=== PATIENT | female | born 1985 | race Caucasian/White ===

== ENCOUNTER 2017-06-12 06:57 | Inpatient (IN) | payer BC ==
[2017-06-12] MEDS ORDERED: Nalbuphine 20 MG/1 ML Amp IVPUSH PRN (08:46)
[2017-06-12] MEDS ORDERED: Aluminum Hydroxide/Magnesium Hydroxide/Simethicone Susp 30 ML Cup PO PRN (08:46)
[2017-06-12] MEDS ORDERED: Sodium Chloride 0.9% 10 ML Syringe FLUSH PRN (08:46)
[2017-06-12] MEDS ORDERED: Ondansetron 4 MG/2 ML SDV IVPUSH PRN ×2 (08:46→20:24)
--- NOTE | 2017-06-12 08:53 | PCM.PREANE ---
Preanesthetic Assessment - Procedure Proposed Procedure: continuous labor epidural - Anesthesia/Transfusion/Family Hx Anesthesia History: Prior Anesthesia Without Reaction Family History of Anesthesia Reaction: No Transfusion History: No Prior Transfusion(s) - Review of Systems General: No Symptoms Pulmonary: No Symptoms Cardiovascular: No Symptoms Gastrointestinal: No Symptoms Neurological: No Symptoms Other: Reports: None - Physical Assessment Pulse: 103 Respiratory Rate: 20 Blood Pressure: 125/73 Temperature: 98.1 F Height: 5 ft 2 in Weight: 87.317 kg ASA Class: 2 Mental Status: Alert & Oriented x3 Airway Class: Mallampati = 2 Dentition: Reports: Normal Dentition Thyro-Mental Finger Breadths: 3 Mouth Opening Finger Breadths: 3 ROM/Head Extension: Full Lungs: Clear to Auscultation, Normal Respiratory Effort Cardiovascular: Regular Rate, Regular Rhythm - Allergies Allergies/Adverse Reactions: Allergies Allergy/AdvReac Type Severity Reaction Status Date / Time No Known Allergies Allergy Verified 06/12/17 08:44 - Blood Blood Available: No - Acknowledgements Anesthesia Type Planned: Epidural Pt an Appropriate Candidate for the Planned Anesthesia: Yes Alternatives and Risks of Anesthesia Discussed w Pt/Guardian: Yes Pt/Guardian Understands and Agrees with Anesthesia Plan: Yes PreAnesthesia Questionnaire Cardiovascular History: Reports: None Respiratory History: Reports: None Gastrointestinal History: Reports: GERD (with ) 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: , Spontaneous , Other (See Below) : 5 (39 weeks) Para: 3 Other OB/BYN History: SAB with D&C 12/2013 Neurological History: Reports: None Psychiatric History: Reports: None Endocrine/Metabolic History: Reports: None Oncologic (Cancer) History: Reports: None - Past Surgical History HEENT Surgical History: Reports: Other (See Below) (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
[2017-06-12] MEDS ORDERED: ePHEDrine 50 MG/ML SDV IVPUSH PRN ×2 (08:58→22:52)
[2017-06-12] MEDS ORDERED: diphenhydrAMINE 50 MG/ML SDV IVPUSH PRN ×3 (08:58→22:52)
[2017-06-12] MEDS ORDERED: fentaNYL 100 MCG/2 ML SDV EPIDUR PRN (08:58)
[2017-06-12] MEDS ORDERED: Oxytocin/Lactated Ringers 10 UNIT/1,000 ML BAG IV SCH ×2 (09:00)
[2017-06-12] MEDS ORDERED: Bupivacaine/fentaNYL/NS 100 ML Bag EPIDUR SCH (09:00)
[2017-06-12] MEDS: Lactated Ringers 1,000 ML IV SCH ×4 (09:14→19:50)
[2017-06-12] MEDS ORDERED: FLU Vacc QS 2017-18 (6mos UP)/PF 60 MCG/0.5 ML Syringe IM ONE (09:15)
[2017-06-12] MEDS ORDERED: Metoclopramide 10 MG/2 ML SDV ONE (19:48)
[2017-06-12] MEDS ORDERED: Citric Acid/Sodium Citrate Solution 30 ML Cup ONE (19:49)
[2017-06-12] MEDS ORDERED: Bupivacaine 0.5% 30 ML SDV ONE (19:54)
[2017-06-12] MEDS ORDERED: Sodium Bicarbonate 8.4% 50 MEQ/50 ML Syringe ONE (19:54)
[2017-06-12] MEDS ORDERED: fentaNYL 100 MCG/2 ML SDV ONE (20:22)
[2017-06-12] MEDS ORDERED: fentaNYL 100 MCG/2 ML SDV IVPUSH PRN (20:24)
[2017-06-12] MEDS ORDERED: Oxytocin 10 Units/1 ML SDV ONE ×2 (20:27→20:41)
[2017-06-12] MEDS ORDERED: Lactated Ringers 1,000 ML ONE ×2 (20:27→20:39)
[2017-06-12] MEDS ORDERED: Morphine PF 10 MG/10 ML SDV ONE (20:34)
[2017-06-12] MEDS ORDERED: Lidocaine 2% with EPINEPHrine 1:200,000 20 ML SDV ONE (20:54)
[2017-06-12] MEDS ORDERED: ceFAZolin 1 GM Vial ONE ×2 (21:10)
[2017-06-12] MEDS ORDERED: ePHEDrine 50 MG/ML SDV ONE (21:10)
--- NOTE | 2017-06-12 21:11 | PCM.LDHP ---
L&D History of Present Illness - General Date of Service: 06/12/17 Admit Problem/Dx: Patient Status Order with Admit Dx/Problem 06/12/17 08:46 Patient Status [ADT] Routine Admission Diagnosis/Problem Admission Diagnosis/Problem Source of Information: Patient History Limitations: Reports: No Limitations - History of Present Illness Introduction:: 31 year old at [id number] here for induction of labor history of rapid labors and distance from the hospital. 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: , Spontaneous , Other (See Below) Other OB/BYN History: SAB with D&C 12/2013 Neurological History: Reports: None Psychiatric History: Reports: None Endocrine/Metabolic History: Reports: None Oncologic (Cancer) History: Reports: None - Past Surgical History HEENT Surgical History: Reports: Other (See Below) (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) Female Surgical History: Reports: D&C - History Comment History Comment: tylenol prn and vits Social & Family History - Family History Family Medical History: Noncontributory - Tobacco Use Smoking Status *Q: Former Smoker (quit couple years ago) Used Tobacco, but Quit: Yes Month Tobacco Last Used: 9 Tobacco Use Comment: used a vape Second Hand Smoke Exposure: No - Caffeine Use Caffeine Use: Reports: Coffee, Soda - Alcohol Use Days Per Week of Alcohol Use: 0 - Recreational Drug Use Recreational Drug Use: No H&P Review of Systems - Review of Systems: Review Of Systems: See Below General: Reports: No Symptoms HEENT: Reports: No Symptoms Pulmonary: Reports: No Symptoms Cardiovascular: Reports: No Symptoms Gastrointestinal: Reports: No Symptoms Genitourinary: Reports: No Symptoms Musculoskeletal: Reports: No Symptoms Skin: Reports: No Symptoms Psychiatric: Reports: No Symptoms Neurological: Reports: No Symptoms Hematologic/Lymphatic: Reports: No Symptoms Immunologic: Reports: No Symptoms L&D Exam - Exam Exam: See Below - Vital Signs Vital Signs: Last Vital Signs Temp 36.5 C 06/12/17 20:50 Pulse 74 06/12/17 19:00 Resp 13 06/12/17 21:02 BP 100/55 L 06/12/17 20:50 Pulse Ox 98 06/12/17 21:02 Weight: 87.317 kg - OB Specific Contraction Intensity: Mild to Moderate Movement: Active Heart Rate (FHR) Variability: Moderate (6-25 bmp) - Bsos Score Boss Score Cervix Position: Midposition Boss Score Consistency: Soft Boss Score Effacement: 31-50% Boss Score Dilation: 1-2 cm Boss Score Infant's Station: -3 Boss Score Total: 5 - Exam General: Alert, Oriented HEENT: PERRLA, Conjunctiva Clear, EACs Clear, EOMI, Hearing Intact, Mucosa Moist & [place], Nares Patent, Normal Nasal Septum, Posterior Pharynx Clear, TMs Clear Neck: Supple, Trachea Midline Lungs: Clear to Auscultation, Normal Respiratory Effort Cardiovascular: Regular Rate, Regular Rhythm GI/Abdominal Exam: Normal Bowel Sounds, Soft, Non-Tender, No Organomegaly, No Distention, No Abnormal Bruit, No Mass, Pelvis Stable Rectal Exam: Normal Exam, Normal Rectal Tone Genitourinary: Normal external exam, Normal bimanual exam, Normal speculum exam Back Exam: Normal Inspection, Full Range of Motion Extremities: Normal Inspection, Normal Range of Motion, Non-Tender, No Pedal Edema, Normal Capillary Refill Skin: Warm, Dry, Intact Neurological: Cranial Nerves Intact, Reflexes Equal Bilateral Psychiatric: Alert, Normal Affect, Normal Mood - Patient Data Lab Results Last 24 hrs: Laboratory Results - last 24 hr 06/12/17 06/12/17 Range/Units 09:45 20:15 WBC 7.57 (3.98-10.04) K/mm3 RBC 4.06 (3.98-5.22) M/mm3 Hgb 10.8 L (11.2-15.7) gm/L Hct 33.3 L (34.1-44.9) % MCV 82.0 (79.4-94.8) fl MCH 26.6 (25.6-32.2) pg MCHC 32.4 (32.2-35.5) g/dl RDW Std Deviation 39.8 (36.4-46.3) fL Plt Count 223 (182-369) K/mm3 MPV 10.6 (9.4-12.3) fl Neut % (Auto) 71.9 H (34.0-71.1) % Lymph % (Auto) 19.8 (19.3-51.7) % Kings % (Auto) 6.5 (4.7-12.5) % Eos % (Auto) 0.7 (0.7-5.8) Baso % (Auto) 0.4 (0.1-1.2) % Neut # (Auto) 5.45 (1.56-6.13) K/mm3 Lymph # (Auto) 1.50 (1.18-3.74) K/mm3 Kings # (Auto) 0.49 H (0.24-0.36) K/mm3 Eos # (Auto) 0.05 (0.04-0.36) K/mm3 Baso # (Auto) 0.03 (0.01-0.08) K/mm3 Cord ABG pH 7.25 (7.22-7.32) Cord ABG pCO2 63.3 H (42-58) Cord ABG pO2 18 (12-24) Cord ABG HCO3 26.8 H (24-26) Cord ABG Base Excess -1.8 (-5.5-0.1) Result Diagrams: 06/12/17 09:45 Problem List Initiated/Reviewed/Updated: Yes Orders Last 24hrs: Active Orders 24 hr Category Date Time Status Patient Status Manage Transfer [TRANSFER] Routine ADT 06/12/17 21:00 Ordered Patient Status [ADT] Routine ADT 06/12/17 08:46 Active Activity as Tolerated [RC] PFP Care 06/12/17 08:46 Active Communication Order [RC] ASDIRECTED Care 06/12/17 08:46 Active Communication Order [RC] ASDIRECTED Care 06/12/17 20:24 Active Communication Order [RC] ROUTINE Care 06/12/17 20:24 Active Cooling Warming Measures [RC] ASDIRECTED Care 06/12/17 20:24 Active Notify Provider [RC] ASDIRECTED Care 06/12/17 08:58 Active Notify Provider [RC] ASDIRECTED Care 06/12/17 20:24 Active Notify Provider [RC] PFP Care 06/12/17 08:46 Active Notify Provider [RC] PRN Care 06/12/17 08:46 Active Oxygen Therapy [RC] ASDIRECTED Care 06/12/17 20:24 Active Peripheral IV Care [RC] . DIRECTED Care 06/12/17 08:46 Active Pulse Oximetry [RC] ASDIRECTED Care 06/12/17 20:24 Active Vital Signs [RC] PER UNIT ROUTINE Care 06/12/17 08:46 Active Vital Signs [RC] Q15M Care 06/12/17 20:24 Active Vital Signs [RC] Q1H Care 06/12/17 20:24 Active Regular Diet [DIET] Diet 06/12/17 Breakfast Active Abdomen 1V Flat [CR] Routine Exams 06/12/17 20:25 Taken CBC W/O DIFF,HEMOGRAM [HEME] Stat Lab 06/12/17 20:58 Ordered Alum Hydrox/Mag Hydrox/Simeth [Mag-Al Plus] Med 06/12/17 08:46 Active 30 ml PO Q8H PRN Bupivacaine/fentaNYL/NS [fentaNYL/Bupivacaine/NS 2 MCG- Med 06/12/17 09:00 Active 0.125% 100 ML] 100 ml EPIDUR ASDIRECTED Lactated Ringers [Ringers, Lactated] 1,000 ml Med 06/12/17 09:00 Active IV ASDIRECTED Nalbuphine [Nubain] Med 06/12/17 08:46 Active 10 mg IVPUSH Q2H PRN Ondansetron [Zofran] Med 06/12/17 20:24 Active 4 mg IVPUSH ONETIME PRN Ondansetron [Zofran] Med 06/12/17 08:46 Active 4 mg IVPUSH Q4H PRN Oxytocin/Lactated Ringers [Pitocin in LR 10 Units/1,000 Med 06/12/17 09:00 Active ML] 10 unit in 1,000 ml IV .CONTINUOUS Oxytocin/Lactated Ringers [Pitocin in LR 10 Units/1,000 Med 06/12/17 09:00 Active ML] 10 unit in 1,000 ml IV TITRATE Pharmacy to Dose [Pharmacy to Dose - InFluenza Vaccine] Med 06/13/17 09:00 Once 1 each IM ONETIME ONE Sodium Chloride 0.9% [Saline Flush] Med 06/12/17 08:46 Active 10 ml FLUSH ASDIRECTED PRN diphenhydrAMINE [Benadryl] Med 06/12/17 08:58 Active 25 mg IVPUSH Q6H PRN diphenhydrAMINE [Benadryl] Med 06/12/17 20:24 Active 25 mg IVPUSH Q6H PRN ePHEDrine [ePHEDrine Sulfate] Med 06/12/17 08:58 Active 5 mg IVPUSH ASDIRECTED PRN fentaNYL [Sublimaze] Med 06/12/17 08:58 Active 100 mcg EPIDUR Q3H PRN fentaNYL [Sublimaze] Med 06/12/17 20:24 Active 50 mcg IVPUSH Q5M PRN Electronic Heart Tones Ext w TOCO [WOMSER] Oth 06/12/17 08:46 Ordered Routine Electronic Heart Tones Internal [WOMSER] Per Unit Ot 06/12/17 08:46 Ordered Routine Peripheral IV Insertion Adult [OM.PC] Routine Ot 06/12/17 08:46 Ordered Pulse Oximetry Continuous Monitoring [OM.PC] Routine Ot 06/12/17 20:24 Active Resuscitation Status Routine Resus Stat 06/12/17 08:46 Ordered Medication Orders Al Hydroxide/Mg Hydroxide (Mag-Al Plus) 30 ml PO Q8H PRN PRN Reason: Heartburn Diphenhydramine HCl (Benadryl) 25 mg IVPUSH Q6H PRN PRN Reason: pruritis Diphenhydramine HCl (Benadryl) 25 mg IVPUSH Q6H PRN PRN Reason: pruritis Ephedrine Sulfate (Ephedrine Sulfate) 5 mg IVPUSH ASDIRECTED PRN PRN Reason: Hypotension Fentanyl (Sublimaze) 100 mcg EPIDUR Q3H PRN PRN Reason: Pain Last Admin: 06/12/17 15:46 Dose: 100 mcg Fentanyl (Sublimaze) 50 mcg IVPUSH Q5M PRN PRN Reason: Pain Fentanyl/Bupivacaine HCl (Fentanyl/Bupivacaine/Ns 2 Mcg-0.125% 100 Ml) 100 ml EPIDUR ASDIRECTED ABDON Last Admin: 06/12/17 15:45 Dose: 100 ml Lactated Ringer's (Ringers, Lactated) 1,000 mls @ 100 mls/hr IV ASDIRECTED ABDON Last Admin: 06/12/17 16:19 Dose: 100 mls/hr Infusion: 06/12/17 16:19 Dose: 100 mls/hr Admin: 06/12/17 15:05 Dose: 100 mls/hr Infusion: 06/12/17 15:05 Dose: 100 mls/hr Admin: 06/12/17 09:14 Dose: 100 mls/hr Oxytocin/Lactated Ringer's (Pitocin In Lr 10 Units/1,000 Ml) 10 unit in 1,000 mls @ 12 mls/hr IV TITRATE ABDON; 2 MUNITS/MIN PRN Reason: Protocol Last Titration: 06/12/17 19:30 Dose: 10 munits/min, 60 mls/hr Titration: 06/12/17 14:12 Dose: 15 munits/min, 90 mls/hr Titration: 06/12/17 13:38 Dose: 13 munits/min, 78 mls/hr Titration: 06/12/17 12:23 Dose: 12 munits/min, 72 mls/hr Titration: 06/12/17 11:31 Dose: 10 munits/min, 60 mls/hr Titration: 06/12/17 10:51 Dose: 8 munits/min, 48 mls/hr Titration: 06/12/17 10:16 Dose: 6 munits/min, 36 mls/hr Titration: 06/12/17 09:44 Dose: 4 munits/min, 24 mls/hr Admin: 06/12/17 09:16 Dose: 2 munits/min, 12 mls/hr Oxytocin/Lactated Ringer's (Pitocin In Lr 10 Units/1,000 Ml) 10 unit in 1,000 mls @ 500 mls/hr IV .CONTINUOUS ABDON Influenza Virus Vaccine (Pharmacy To Dose - Influenza Vaccine) 1 each IM ONETIME ONE Stop: 06/13/17 09:01 Nalbuphine HCl (Nubain) 10 mg IVPUSH Q2H PRN PRN Reason: Pain (moderate 4-6) Last Admin: 06/12/17 13:10 Dose: 10 mg Ondansetron HCl (Zofran) 4 mg IVPUSH Q4H PRN PRN Reason: Nausea/Vomiting Ondansetron HCl (Zofran) 4 mg IVPUSH ONETIME PRN PRN Reason: Nausea/Vomiting Sodium Chloride (Saline Flush) 10 ml FLUSH ASDIRECTED PRN PRN Reason: Keep Vein Open Assessment/Plan Comment:: Term induction. Start pitocin. Anticipate unless otherwise indicated EFW 8#9oz
--- NOTE | 2017-06-12 21:16 | PCM.POSTAN ---
POST ANESTHESIA ASSESSMENT - MENTAL STATUS Mental Status: Alert, Oriented - VITAL SIGNS Pulse Rate: 80 SaO2: 98 Resp Rate: 13 Blood Pressure: 100/55 Temperature: 97.7 F - RESPIRATORY Respiratory Status: Respiratory Rate WNL, Airway Patent, O2 Saturation Stable, Supplemental Oxygen - CARDIOVASCULAR CV Status: Pulse Rate WNL, Blood Pressure Stable - GASTROINTESTINAL GI Status: No Symptoms - PAIN Pain Score: 0 - POST OP HYDRATION Hydration Status: Adequate & Stable
--- NOTE | 2017-06-12 21:17 | PCM.PNLD ---
Labor Progress Note - VS & Meds Vital Signs: Last Vital Signs Temp 36.7 C 06/12/17 21:05 Pulse 74 06/12/17 19:00 Resp 12 06/12/17 21:05 BP 95/55 L 06/12/17 21:05 Pulse Ox 99 06/12/17 21:05 Active Medications: Current Medications Al Hydroxide/Mg Hydroxide (Mag-Al Plus) 30 ml PO Q8H PRN PRN Reason: Heartburn Diphenhydramine HCl (Benadryl) 25 mg IVPUSH Q6H PRN PRN Reason: pruritis Diphenhydramine HCl (Benadryl) 25 mg IVPUSH Q6H PRN PRN Reason: pruritis Ephedrine Sulfate (Ephedrine Sulfate) 5 mg IVPUSH ASDIRECTED PRN PRN Reason: Hypotension Fentanyl (Sublimaze) 100 mcg EPIDUR Q3H PRN PRN Reason: Pain Last Admin: 06/12/17 15:46 Dose: 100 mcg Fentanyl (Sublimaze) 50 mcg IVPUSH Q5M PRN PRN Reason: Pain Fentanyl/Bupivacaine HCl (Fentanyl/Bupivacaine/Ns 2 Mcg-0.125% 100 Ml) 100 ml EPIDUR ASDIRECTED ABDON Last Admin: 06/12/17 15:45 Dose: 100 ml Lactated Ringer's (Ringers, Lactated) 1,000 mls @ 100 mls/hr IV ASDIRECTED ABDON Last Admin: 06/12/17 16:19 Dose: 100 mls/hr Oxytocin/Lactated Ringer's (Pitocin In Lr 10 Units/1,000 Ml) 10 unit in 1,000 mls @ 12 mls/hr IV TITRATE ABDON; 2 MUNITS/MIN PRN Reason: Protocol Last Titration: 06/12/17 19:30 Dose: 10 munits/min, 60 mls/hr Oxytocin/Lactated Ringer's (Pitocin In Lr 10 Units/1,000 Ml) 10 unit in 1,000 mls @ 500 mls/hr IV .CONTINUOUS [facility] Influenza Virus Vaccine (Pharmacy To Dose - Influenza Vaccine) 1 each IM ONETIME ONE Stop: 06/13/17 09:01 Nalbuphine HCl (Nubain) 10 mg IVPUSH Q2H PRN PRN Reason: Pain (moderate 4-6) Last Admin: 06/12/17 13:10 Dose: 10 mg Ondansetron HCl (Zofran) 4 mg IVPUSH Q4H PRN PRN Reason: Nausea/Vomiting Ondansetron HCl (Zofran) 4 mg IVPUSH ONETIME PRN PRN Reason: Nausea/Vomiting Sodium Chloride (Saline Flush) 10 ml FLUSH ASDIRECTED PRN PRN Reason: Keep Vein Open Discontinued Medications Bupivacaine HCl (Marcaine 0.5%) Confirm Administered Dose 30 ml .ROUTE .STK-MED ONE Stop: 06/12/17 19:55 Cefazolin Sodium (Ancef) Confirm Administered Dose 1 gm .ROUTE .STK-MED ONE Stop: 06/12/17 21:11 Cefazolin Sodium (Ancef) Confirm Administered Dose 1 gm .ROUTE .STK-MED ONE Stop: 06/12/17 21:11 Citric Acid/Sodium Citrate (Bicitra Solution) Confirm Administered Dose 30 ml .ROUTE .STK-MED ONE Stop: 06/12/17 19:50 Ephedrine Sulfate (Ephedrine Sulfate) Confirm Administered Dose 50 mg .ROUTE .STK-MED ONE Stop: 06/12/17 21:11 Fentanyl (Sublimaze) Confirm Administered Dose 100 mcg .ROUTE .STK-MED ONE Stop: 06/12/17 20:23 Lactated Ringer's (Ringers, Lactated) Confirm Administered Dose 1,000 mls @ as directed .ROUTE .STK-MED ONE Stop: 06/12/17 20:28 Lactated Ringer's (Ringers, Lactated) Confirm Administered Dose 1,000 mls @ as directed .ROUTE .STK-MED ONE Stop: 06/12/17 20:40 Influenza Virus Vaccine (Flulaval Quad [id number]) 60 mcg IM .ONCE ONE Stop: 06/12/17 09:16 Lidocaine/Epinephrine (Xylocaine-Mpf 2%-Epi 1:200,000) Confirm Administered Dose 20 ml .ROUTE .STK-MED ONE Stop: 06/12/17 20:55 Metoclopramide HCl (Reglan) Confirm Administered Dose 10 mg .ROUTE .STK-MED ONE Stop: 06/12/17 19:49 Morphine Sulfate (Duramorph Pf) Confirm Administered Dose 10 mg .ROUTE .STK-MED ONE Stop: 06/12/17 20:35 Oxytocin (Pitocin) Confirm Administered Dose 10 unit .ROUTE .STK-MED ONE Stop: 06/12/17 20:28 Oxytocin (Pitocin) Confirm Administered Dose 10 unit .ROUTE .STK-MED ONE Stop: 06/12/17 20:42 Sodium Bicarbonate (Sodium Bicarbonate 8.4%) Confirm Administered Dose 50 meq .ROUTE .STK-MED ONE Stop: 06/12/17 19:55 - Uterine Contractions Contraction Intensity: Mild to Moderate Uterine Resting Tone: Soft - Monitoring Heart Rate (FHR) Variability: Moderate (6-25 bmp) Accelerations: Present, 15x15 Strip Review: Category I - Vaginal Exam Dilation (cm): 3 Effacement (Percent): 75 Station: -3 Cervical Position: Midposition - Labor Progress (Free Text) Labor Progress: Good progress. 3 cm. Feeling more uncomfortable
--- NOTE | 2017-06-12 21:18 | PCM.PNLD ---
Labor Progress Note - VS & Meds Vital Signs: Last Vital Signs Temp 36.5 C 06/12/17 21:15 Pulse 80 06/12/17 21:15 Resp 13 06/12/17 21:15 BP 100/55 L 06/12/17 21:15 Pulse Ox 98 06/12/17 21:15 Active Medications: Current Medications Al Hydroxide/Mg Hydroxide (Mag-Al Plus) 30 ml PO Q8H PRN PRN Reason: Heartburn Diphenhydramine HCl (Benadryl) 25 mg IVPUSH Q6H PRN PRN Reason: pruritis Diphenhydramine HCl (Benadryl) 25 mg IVPUSH Q6H PRN PRN Reason: pruritis Ephedrine Sulfate (Ephedrine Sulfate) 5 mg IVPUSH ASDIRECTED PRN PRN Reason: Hypotension Fentanyl (Sublimaze) 100 mcg EPIDUR Q3H PRN PRN Reason: Pain Last Admin: 06/12/17 15:46 Dose: 100 mcg Fentanyl (Sublimaze) 50 mcg IVPUSH Q5M PRN PRN Reason: Pain Fentanyl/Bupivacaine HCl (Fentanyl/Bupivacaine/Ns 2 Mcg-0.125% 100 Ml) 100 ml EPIDUR ASDIRECTED ABDON Last Admin: 06/12/17 15:45 Dose: 100 ml Lactated Ringer's (Ringers, Lactated) 1,000 mls @ 100 mls/hr IV ASDIRECTED ABDON Last Admin: 06/12/17 16:19 Dose: 100 mls/hr Oxytocin/Lactated Ringer's (Pitocin In Lr 10 Units/1,000 Ml) 10 unit in 1,000 mls @ 12 mls/hr IV TITRATE ABDON; 2 MUNITS/MIN PRN Reason: Protocol Last Titration: 06/12/17 19:30 Dose: 10 munits/min, 60 mls/hr Oxytocin/Lactated Ringer's (Pitocin In Lr 10 Units/1,000 Ml) 10 unit in 1,000 mls @ 500 mls/hr IV .CONTINUOUS [facility] Influenza Virus Vaccine (Pharmacy To Dose - Influenza Vaccine) 1 each IM ONETIME ONE Stop: 06/13/17 09:01 Nalbuphine HCl (Nubain) 10 mg IVPUSH Q2H PRN PRN Reason: Pain (moderate 4-6) Last Admin: 06/12/17 13:10 Dose: 10 mg Ondansetron HCl (Zofran) 4 mg IVPUSH Q4H PRN PRN Reason: Nausea/Vomiting Ondansetron HCl (Zofran) 4 mg IVPUSH ONETIME PRN PRN Reason: Nausea/Vomiting Sodium Chloride (Saline Flush) 10 ml FLUSH ASDIRECTED PRN PRN Reason: Keep Vein Open Discontinued Medications Bupivacaine HCl (Marcaine 0.5%) Confirm Administered Dose 30 ml .ROUTE .STK-MED ONE Stop: 06/12/17 19:55 Cefazolin Sodium (Ancef) Confirm Administered Dose 1 gm .ROUTE .STK-MED ONE Stop: 06/12/17 21:11 Cefazolin Sodium (Ancef) Confirm Administered Dose 1 gm .ROUTE .STK-MED ONE Stop: 06/12/17 21:11 Citric Acid/Sodium Citrate (Bicitra Solution) Confirm Administered Dose 30 ml .ROUTE .STK-MED ONE Stop: 06/12/17 19:50 Ephedrine Sulfate (Ephedrine Sulfate) Confirm Administered Dose 50 mg .ROUTE .STK-MED ONE Stop: 06/12/17 21:11 Fentanyl (Sublimaze) Confirm Administered Dose 100 mcg .ROUTE .STK-MED ONE Stop: 06/12/17 20:23 Lactated Ringer's (Ringers, Lactated) Confirm Administered Dose 1,000 mls @ as directed .ROUTE .STK-MED ONE Stop: 06/12/17 20:28 Lactated Ringer's (Ringers, Lactated) Confirm Administered Dose 1,000 mls @ as directed .ROUTE .STK-MED ONE Stop: 06/12/17 20:40 Influenza Virus Vaccine (Flulaval Quad [id number]) 60 mcg IM .ONCE ONE Stop: 06/12/17 09:16 Lidocaine/Epinephrine (Xylocaine-Mpf 2%-Epi 1:200,000) Confirm Administered Dose 20 ml .ROUTE .STK-MED ONE Stop: 06/12/17 20:55 Metoclopramide HCl (Reglan) Confirm Administered Dose 10 mg .ROUTE .STK-MED ONE Stop: 06/12/17 19:49 Morphine Sulfate (Duramorph Pf) Confirm Administered Dose 10 mg .ROUTE .STK-MED ONE Stop: 06/12/17 20:35 Oxytocin (Pitocin) Confirm Administered Dose 10 unit .ROUTE .STK-MED ONE Stop: 06/12/17 20:28 Oxytocin (Pitocin) Confirm Administered Dose 10 unit .ROUTE .STK-MED ONE Stop: 06/12/17 20:42 Sodium Bicarbonate (Sodium Bicarbonate 8.4%) Confirm Administered Dose 50 meq .ROUTE .STK-MED ONE Stop: 06/12/17 19:55 - Uterine Contractions Uterine Monitoring Mode: External [place] Contraction Intensity: Mild to Moderate Uterine Resting Tone: Soft - Monitoring Heart Rate (FHR) Baseline: 140 Heart Rate (FHR) Variability: Moderate (6-25 bmp) Accelerations: Present, 15x15 Strip Review: Category I - Vaginal Exam Dilation (cm): 7 Effacement (Percent): 90 Station: -3 Cervical Position: Midposition - Labor Progress (Free Text) Labor Progress: Continued leaking of fluid. Feeling more pressure.
--- NOTE | 2017-06-12 21:22 | CR ---
Abdomen: Supine view of the abdomen was obtained. Soft tissue density is seen presumably due to enlarged uterus. Slight increased gas within small bowel is seen most likely representing minimal ileus. Linear density is coiled overlying the upper lumbar spine. Please correlate as to etiology. No opaque foreign body is otherwise seen. No additional abnormality is seen. Impression: 1. Linear density overlying the spine. Please correlate as to etiology. No other opaque foreign body is seen. Other incidental findings as noted above. Diagnostic code #3
--- NOTE | 2017-06-12 21:23 | PCM.SN ---
- Free Text/Narrative Note: Called to bedside by patient's RN after early deceleration and cervical exam followed by bright red vaginal bleeding. I arrived at bedside at 7:39 after phone call at 7:27. Brisk red vaginal bleeding noted. FHT 135 with good variability. Given significant bleeding and cervical exam of 7 cm plan to proceed with primary section. RBA discussed patient understands and wishes to proceed. Diagnosis abruption.
--- NOTE | 2017-06-12 21:34 | PCM.OPNOTE ---
- General Post-Op/Procedure Note Date of Surgery/Procedure: 06/12/17 Operative Procedure(s): primary section Findings: Significant clot upon entry to uterus. Two saturated chux pads under patient upon transfer. Vigorous male, weight 9#9oz, APGARS 9/9 at 2012. Pre Op Diagnosis: Abruption, IUP at 39+ Post-Op Diagnosis: Same Anesthesia Technique: Epidural Primary Surgeon: Mariana Garcia Anesthesia Provider: Ari Chan Medical Record Retrieval Specialist: Meghna Vieyra Reason Medical Record Retrieval Specialist Was Necessary: Standard of care, stat for abruption, retraction and expediting procedure for patient and safety. Pathology: placenta Fluid Replacement, Intraop: 1,500 Output, Urine Amount: 450 EBL in mLs: 1,500 Complications: None Condition: Good Free Text/Narrative:: Patient taken to the operating room where epidural anesthesia found to be adequate she was prepped with Betadine and draped in normal sterile fashion skin incision made in normal fashion in sterile fashion down to the fascia and fascial incision extended laterally in both directions muscle , peritoneum entered bluntly. Bladder blade placed uterine incision made with the scalpel carried down to the amnion amniotic cavity emptied and copious clot noted. Head flexed brought to the incision delivered with gentle fundal pressure body shoulders followed without difficulty cord clamped and cut and infant handed off to charger operator helper whose presence had been requested. Cord segment sent for gases. Placenta delivered uterus exteriorized cleared of all clots and debris. Uterine incision closed in standard 2 layer fashion with 0 Monocryl. Multiple [id number] sutures used at left lateral aspect of incision to render hemostasis. Uterus returned to the abdomen and reinspected excellent hemostasis maintained fascia closed with #1 PDS subcuticular area irrigated and skin closed with 3-0 Monocryl on a Smith needle patient tolerated procedure well cultures were not obtained prior to presurgical surgery so x-ray was performed which showed no laps or instruments in the abdomen.
[2017-06-12] MEDS ORDERED: Ketorolac 30 MG/ML SDV IVPUSH SCH (21:45)
[2017-06-12] MEDS ORDERED: Bupivacaine 0.25% 10 ML SDV ONE (22:22)
[2017-06-12] MEDS ORDERED: Lanolin 100% Cream 7 GM Tube TOP PRN (22:52)
[2017-06-12] MEDS ORDERED: Ibuprofen 600 MG Tab PO PRN (22:52)
[2017-06-12] MEDS ORDERED: Dextrose 5%-Lactated Ringers 1,000 ML IV SCH (22:52)
[2017-06-12] MEDS ORDERED: Docusate Sodium 100 MG Cap PO PRN (22:52)
[2017-06-12] MEDS ORDERED: Naloxone 0.4 MG/ML SDV IVPUSH PRN (22:52)
[2017-06-12] MEDS ORDERED: Citric Acid/Sodium Citrate Solution 30 ML Cup PO ONE (23:24)
[2017-06-12] MEDS ORDERED: Metoclopramide 10 MG/2 ML SDV IVPUSH ONE (23:24)
[2017-06-13] MEDS ORDERED: Ketorolac 30 MG/ML SDV IVPUSH SCH (04:00)
--- NOTE | 2017-06-13 07:42 | PCM48HPAN ---
Post Anesthesia Note - EVALUATION WITHIN 48HRS OF ANESTHETIC Vital Signs in Normal Range: Yes Patient Participated in Evaluation: Yes Respiratory Function Stable: Yes Airway Patent: Yes Cardiovascular Function Stable: Yes Hydration Status Stable: Yes Pain Control Satisfactory: Yes Nausea and Vomiting Control Satisfactory: Yes Mental Status Recovered: Yes
[2017-06-13] MEDS: Ibuprofen 600 MG Tab PO PRN ×2 (12:03→17:38)
[2017-06-13] MEDS: Simethicone 80 MG Tab.Chew PO SCH ×2 (22:03→22:05)
[2017-06-13] MEDS: Acetaminophen/oxyCODONE 325-5 MG Tab PO PRN (22:04)
[2017-06-14] MEDS: Acetaminophen/oxyCODONE 325-5 MG Tab PO PRN ×2 (03:33→10:12)
[2017-06-14] MEDS: Simethicone 80 MG Tab.Chew PO SCH ×2 (10:12→13:47)
--- NOTE | 2017-06-14 11:17 | PCM.DCSUM1 ---
Discharge Summary - Hospital Course Brief History: Admitted for induction. Stat c/s for placental abruption at 7 cm after prior normal labor course. Significant blood loss and anemia which she tolerated well. - Discharge Data Discharge Date: 06/14/17 Discharge Disposition: Home, Self-Care 01 Condition: Good - Patient Summary/Data Operative Procedure(s) Performed: primary section - Patient Instructions Diet: Usual Diet as Tolerated Activity: No Strenuous Activities Driving: May Drive Today Showering/Bathing: May Shower Notify Provider of: Fever, Increased Pain, Swelling and Redness, Drainage, Nausea and/or Vomiting - Discharge Plan Patient Handouts: Smoking Cessation, Tips for Success, [id number], Smoking Hazards Referrals: Mariana Garcia MD [Primary Care Provider] - ([birth year] in ) - Discharge Summary/Plan Comment DC Time >30 min.: No - General Info Date of Service: 06/14/17 Functional Status: Reports: Pain Controlled - Review of Systems General: Denies: Weakness, Fatigue HEENT: Reports: No Symptoms Pulmonary: Reports: No Symptoms Cardiovascular: Reports: No Symptoms Gastrointestinal: Reports: No Symptoms Genitourinary: Reports: No Symptoms Musculoskeletal: Reports: No Symptoms Skin: Reports: No Symptoms Neurological: Reports: No Symptoms Psychiatric: Reports: No Symptoms - Patient Data Vitals - Most Recent: Last Vital Signs Temp 36.9 C 06/14/17 03:32 Pulse 90 06/14/17 03:32 Resp 14 06/14/17 03:32 BP 117/69 06/14/17 03:32 Pulse Ox 94 L 06/14/17 03:32 Weight - Most Recent: 87.317 kg I&O - Last 24 hours: Intake & Output 06/13/17 06/14/17 06/14/17 22:59 06:59 14:59 Intake Total 240 Output Total 1150 Balance -910 Med Orders - Current: Current Medications Docusate Sodium (Colace) 100 mg PO Q12H PRN PRN Reason: Constipation Emollient Ointment (Lansinoh Hpa) 0 gm TOP ASDIRECTED PRN PRN Reason: Sore Nipples Ibuprofen (Motrin) 600 mg PO Q6H PRN PRN Reason: mild pain or fever Last Admin: 06/13/17 17:38 Dose: 600 mg Oxycodone/Acetaminophen (Percocet 325-5 Mg) 2 tab PO Q6H PRN PRN Reason: Pain (moderate 4-6) Last Admin: 06/14/17 10:12 Dose: 2 tab Simethicone (Simethicone) 80 mg PO QIDACANDBED ABDON Last Admin: 06/14/17 10:12 Dose: 80 mg Discontinued Medications Al Hydroxide/Mg Hydroxide (Mag-Al Plus) 30 ml PO Q8H PRN PRN Reason: Heartburn Bupivacaine HCl (Marcaine 0.5%) Confirm Administered Dose 30 ml .ROUTE .STK-MED ONE Stop: 06/12/17 19:55 Bupivacaine HCl (Sensorcaine-Mpf 0.25%) 10 ml .ROUTE .STK-MED ONE Stop: 06/12/17 22:23 Cefazolin Sodium (Ancef) Confirm Administered Dose 1 gm .ROUTE .STK-MED ONE Stop: 06/12/17 21:11 Cefazolin Sodium (Ancef) Confirm Administered Dose 1 gm .ROUTE .STK-MED ONE Stop: 06/12/17 21:11 Citric Acid/Sodium Citrate (Bicitra Solution) Confirm Administered Dose 30 ml .ROUTE .STK-MED ONE Stop: 06/12/17 19:50 Last Admin: 06/12/17 19:50 Dose: 30 ml Citric Acid/Sodium Citrate (Bicitra Solution) 30 ml PO ONETIME ONE Stop: 06/12/17 23:25 Last Admin: 06/12/17 23:30 Dose: Not Given Diphenhydramine HCl (Benadryl) 25 mg IVPUSH Q6H PRN PRN Reason: pruritis Diphenhydramine HCl (Benadryl) 25 mg IVPUSH Q6H PRN PRN Reason: pruritis Diphenhydramine HCl (Benadryl) 25 mg IVPUSH Q6H PRN PRN Reason: Itching or Nausea Last Admin: 06/13/17 02:08 Dose: 25 mg Ephedrine Sulfate (Ephedrine Sulfate) 5 mg IVPUSH ASDIRECTED PRN PRN Reason: Hypotension Ephedrine Sulfate (Ephedrine Sulfate) Confirm Administered Dose 50 mg .ROUTE .STK-MED ONE Stop: 06/12/17 21:11 Ephedrine Sulfate (Ephedrine Sulfate) 5 mg IVPUSH SEECOMMENT PRN PRN Reason: Other Fentanyl (Sublimaze) 100 mcg EPIDUR Q3H PRN PRN Reason: Pain Last Admin: 06/12/17 15:46 Dose: 100 mcg Fentanyl (Sublimaze) Confirm Administered Dose 100 mcg .ROUTE .STK-MED ONE Stop: 06/12/17 20:23 Fentanyl (Sublimaze) 50 mcg IVPUSH Q5M PRN PRN Reason: Pain Fentanyl/Bupivacaine HCl (Fentanyl/Bupivacaine/Ns 2 Mcg-0.125% 100 Ml) 100 ml EPIDUR ASDIRECTED [facility] Last Admin: 06/12/17 15:45 Dose: 100 ml Lactated Ringer's (Ringers, Lactated) 1,000 mls @ 100 mls/hr IV ASDIRECTED ABDON Last Admin: 06/12/17 19:50 Dose: 999 mls/hr Oxytocin/Lactated Ringer's (Pitocin In Lr 10 Units/1,000 Ml) 10 unit in 1,000 mls @ 12 mls/hr IV TITRATE ABDON; 2 MUNITS/MIN PRN Reason: Protocol Last Titration: 06/12/17 19:45 Dose: 0 munits/min, 0 mls/hr Oxytocin/Lactated Ringer's (Pitocin In Lr 10 Units/1,000 Ml) 10 unit in 1,000 mls @ 500 mls/hr IV .CONTINUOUS ABDON Lactated Ringer's (Ringers, Lactated) Confirm Administered Dose 1,000 mls @ as directed .ROUTE .STK-MED ONE Stop: 06/12/17 20:28 Lactated Ringer's (Ringers, Lactated) Confirm Administered Dose 1,000 mls @ as directed .ROUTE .STK-MED ONE Stop: 06/12/17 20:40 Dextrose/Lactated Ringer's (Dextrose 5%-Lactated Ringers) 1,000 mls @ 125 mls/ hr IV ASDIRECTED ABDON Stop: 06/13/17 06:51 Last Admin: 06/12/17 23:21 Dose: 125 mls/hr Ibuprofen (Motrin) 600 mg PO Q6H PRN PRN Reason: mild pain or fever Influenza Virus Vaccine (Pharmacy To Dose - Influenza Vaccine) 1 each IM ONETIME ONE Stop: 06/13/17 09:01 Influenza Virus Vaccine (Flulaval Quad [id number]) 60 mcg IM .ONCE ONE Stop: 06/12/17 09:16 Last Admin: 06/13/17 12:57 Dose: 60 mcg Ketorolac Tromethamine (Toradol) 30 mg IVPUSH ONETIME [facility] Last Admin: 06/12/17 21:55 Dose: 30 mg Ketorolac Tromethamine (Toradol) 30 mg IVPUSH Q6H ABDON Stop: 06/13/17 16:01 Last Admin: 06/13/17 04:26 Dose: 30 mg Lidocaine/Epinephrine (Xylocaine-Mpf 2%-Epi 1:200,000) Confirm Administered Dose 20 ml .ROUTE .STK-MED ONE Stop: 06/12/17 20:55 Metoclopramide HCl (Reglan) Confirm Administered Dose 10 mg .ROUTE .STK-MED ONE Stop: 06/12/17 19:49 Last Admin: 06/12/17 19:50 Dose: 10 mg Metoclopramide HCl (Reglan) 10 mg IVPUSH ONETIME ONE Stop: 06/12/17 23:25 Last Admin: 06/12/17 23:30 Dose: Not Given Morphine Sulfate (Duramorph Pf) Confirm Administered Dose 10 mg .ROUTE .STK-MED ONE Stop: 06/12/17 20:35 Nalbuphine HCl (Nubain) 10 mg IVPUSH Q2H PRN PRN Reason: Pain (moderate 4-6) Last Admin: 06/12/17 13:10 Dose: 10 mg Naloxone HCl (Narcan) 0.1 mg IVPUSH SEECOMMENT PRN PRN Reason: Respiratory Depression Ondansetron HCl (Zofran) 4 mg IVPUSH Q4H PRN PRN Reason: Nausea/Vomiting Ondansetron HCl (Zofran) 4 mg IVPUSH ONETIME PRN PRN Reason: Nausea/Vomiting Oxytocin (Pitocin) Confirm Administered Dose 10 unit .ROUTE .STK-MED ONE Stop: 06/12/17 20:28 Oxytocin (Pitocin) Confirm Administered Dose 10 unit .ROUTE .STK-MED ONE Stop: 06/12/17 20:42 Sodium Bicarbonate (Sodium Bicarbonate 8.4%) Confirm Administered Dose 50 meq .ROUTE .STK-MED ONE Stop: 06/12/17 19:55 Last Admin: 06/13/17 01:17 Dose: Not Given Sodium Chloride (Saline Flush) 10 ml FLUSH ASDIRECTED PRN PRN Reason: Keep Vein Open - Exam General: Reports: Alert, Oriented HEENT: Reports: Pupils Equal, Pupils Reactive, EOMI, Mucous Membr. Moist/[place] Neck: Reports: Supple Lungs: Reports: Clear to Auscultation, Normal Respiratory Effort Cardiovascular: Reports: Regular Rate, Regular Rhythm GI/Abdominal Exam: Normal Bowel Sounds, Soft, Non-Tender, No Organomegaly, No Distention, No Abnormal Bruit, No Mass, Pelvis Stable (Female) Exam: Normal External Exam, Normal Speculum Exam, Normal Bimanual Exam Rectal (Female) Exam: Normal Exam Back Exam: Reports: Normal Inspection, Full Range of Motion Extremities: Normal Inspection, Normal Range of Motion, Non-Tender, No Pedal Edema, Normal Capillary Refill Skin: Reports: Warm, Dry, Intact Wound/Incisions: Reports: Healing Well Neurological: Reports: No New Focal Deficit Psy/Mental Status: Reports: Alert, Normal Affect, Normal Mood *Q Meaningful Use (DIS) - VTE *Q VTE Criteria *Q: - Stroke *Q Stroke Criteria *Q: - AMI *Q AMI Criteria *Q:
[2017-06-14] MEDS: Ibuprofen 600 MG Tab PO PRN (13:24)
== END 2017-06-14 13:25 | disposition home or self-care (01) | DRG 540 ==
LOC: JD.OB 06:57 → OBSVTOIN 20:12
PROVIDERS: ADMIT Obstetrics & Gynecology; ATTEND Obstetrics & Gynecology
PROC: 10D00Z1 Extraction of Products of Conception, Low, Open Approach (ICD-10-PCS; principal; 2017-06-12)
PROC: 3E0P3VZ Introduction of Hormone into Female Reproductive, Percutaneous Approach (ICD-10-PCS; 2017-06-12)
PROC: 10907ZC Drainage of Amniotic Fluid, Therapeutic from Products of Conception, Via Natural or Artificial Opening (ICD-10-PCS; 2017-06-12)
PROC: 00HU33Z Insertion of Infusion Device into Spinal Canal, Percutaneous Approach (ICD-10-PCS; 2017-06-12)
PROC: 3E0R3BZ Introduction of Anesthetic Agent into Spinal Canal, Percutaneous Approach (ICD-10-PCS; 2017-06-12)
DX: O45.93 Premature separation of placenta, unspecified, third trimester (principal); Z3A.39 39 weeks gestation of pregnancy; Z37.0 Single live birth; O76 Abnormality in fetal heart rate and rhythm complicating labor and delivery; Z87.891 Personal history of nicotine dependence
CPT/HCPCS: 01967; 01968; 36415; 36600; 74000; 74000-26; 82803; 85025; 85027; 90471; 90686; 94762; A9270-GY; G0008; J0690; J1200; J1885; J2270; J2300; J2590; J2765; J3010; J7042; J7120